=== PATIENT | male | born 1935 | race Caucasian/White ===

== ENCOUNTER 2022-08-08 13:45 | Inpatient (IN) | payer MEDICARE, BC ==
[~2022-08-08] VITALS: Ht 172.7 cm; Wt 83.9 kg
[2022-08-08] MEDS ORDERED: ASPIRIN 81 MG TAB.CHEW PO ONE (14:00)
[2022-08-08] MEDS ORDERED: ASPIRIN 81 MG TAB.CHEW ONE (14:24)
[2022-08-08 14:29] LABS: HEMATOCRIT 38.1 % (36.7-47.1); MEAN CORPUSCULAR HEMOGLOBIN 33.5 uug (23.8-33.4); MEAN CORPUSCULAR VOLUME 98.4 fL (73.0-96.2); PLATELET COUNT (AUTO) 164 K/uL (152-348)
[2022-08-08] MEDS ORDERED: ASPI81TA31 PO (14:33)
[2022-08-08] MEDS ORDERED: CLOP75TA15 PO (14:33)
[2022-08-08] MEDS ORDERED: PRED20TA PO (14:33)
[2022-08-08] MEDS ORDERED: FERR325T30 PO (14:33)
[2022-08-08] MEDS ORDERED: METO25TA6 PO (14:33)
[2022-08-08 14:53] LABS: CARBON DIOXIDE 27 mmol/L (21-32); CHLORIDE 108 mmol/L (98-107); GLUCOSE 105 mg/dL (74-106); POTASSIUM 3.9 mmol/L (3.5-5.1); UREA NITROGEN, BLOOD 17 mg/dL (7-18)
[2022-08-08 15:46] LABS: BILIRUBIN,DIRECT 0.1 mg/dL (0.0-0.2); BILIRUBIN,TOTAL 0.3 mg/dL (0.2-1.0); TOTAL PROTEIN, SERUM 6.5 g/dL (6.4-8.2)
[2022-08-08 16:33] VITALS: BP 98/60
[2022-08-08 17:06] LABS: *BILIRUBIN,URIN NEGATIVE (NEGATIVE); *BLOOD, URINE NEGATIVE (NEGATIVE); *CLARITY,URINE CLEAR (CLEAR); *COLOR,URINE YELLOW (YELLOW); *KETONES,URINE NEGATIVE (NEGATIVE); *UROBILINOGEN,URINE 0.2 E.U./dl (NORMAL); LEUKOCYTE ESTERASE ,URINE NEGATIVE (NEGATIVE); NITRITE, URINE NEGATIVE (NEGATIVE); PH,URINE 6.5 (5.0-8.0); UGLUCOSE NEGATIVE (NEGATIVE)
[2022-08-08] MEDS ORDERED: PANT40TA2 PO (17:07)
[2022-08-08] MEDS ORDERED: OLME20TA13 PO (17:15)
[2022-08-08] MEDS ORDERED: METO-357 PO (17:25)
[2022-08-08] MEDS ORDERED: TRELEGY INH (17:25)
[2022-08-08] MEDS ORDERED: HYDROCODONE/APAP 5-325MG TABLET PO PRN (18:15)
[2022-08-08] MEDS ORDERED: ACETAMINOPHEN 325 MG TABLET PO PRN (18:15)
[2022-08-08] MEDS ORDERED: TEMAZEPAM 15 MG CAPSULE PO PRN (18:15)
[2022-08-08] MEDS ORDERED: ONDANSETRON 4 MG/2 ML VIAL IV PRN (18:15)
[2022-08-08] MEDS ORDERED: TEMAZEPAM 7.5 MG CAPSULE PO PRN (18:30)
[2022-08-08 20:00] VITALS: BP 157/78
[2022-08-09] VITALS: BP 148/87
[2022-08-09 04:00] VITALS: BP 154/83
[2022-08-09 06:49] LABS: HEMATOCRIT 37.4 % (36.7-47.1); MEAN CORPUSCULAR HEMOGLOBIN 33.7 uug (23.8-33.4); MEAN CORPUSCULAR VOLUME 97.9 fL (73.0-96.2); PLATELET COUNT (AUTO) 159 K/uL (152-348)
[2022-08-09] MEDS ORDERED: PANTOPRAZOLE SODIUM 40 MG TABLET.DR PO SCH (07:00)
[2022-08-09 07:18] LABS: THYROID STIMULATING HORMONE 2.799 mIU/mL (0.358-3.740)
[2022-08-09] MEDS ORDERED: METOPROLOL SUCCINATE XL 25 MG TAB.SR.24H PO SCH (09:00)
[2022-08-09] MEDS ORDERED: METOPROLOL SUCCINATE XL 50 MG TAB.SR.24H PO SCH ×2 (09:00)
[2022-08-09] MEDS ORDERED: FERROUS SULFATE 325 MG TABEC PO SCH (09:00)
[2022-08-09] MEDS ORDERED: ASPIRIN EC 81 MG TABLET.DR PO SCH (09:00)
[2022-08-09] MEDS ORDERED: predniSONE 20 MG TABLET PO SCH (09:00)
[2022-08-09 10:02] LABS: ALANINE AMINOTRANSFERASE 22 U/L (16-63); ALKALINE PHOSPHATASE 59 U/L (50-136); ASPARTATE AMINOTRANSFERASE 19 U/L (15-37); BILIRUBIN,TOTAL 0.5 mg/dL (0.2-1.0); CARBON DIOXIDE 30 mmol/L (21-32); CHLORIDE 107 mmol/L (98-107); CHOLESTEROL 184 mg/dL (<200); GLUCOSE 81 mg/dL (74-106); HDL CHOLESTEROL 63 mg/dL (40-60); MAGNESIUM 1.7 mg/dL (1.8-2.4); PHOSPHOROUS 3.4 mg/dL (2.5-4.9); POTASSIUM 3.5 mmol/L (3.5-5.1); TRIGLYCERIDES 96 MG/DL (30-150); UREA NITROGEN, BLOOD 13 mg/dL (7-18)
[2022-08-09 12:00] VITALS: BP 143/76
[2022-08-09] MEDS ORDERED: METO-356 PO (13:39)
[2022-08-09] MEDS ORDERED: ASPI-618 PO (13:39)
[2022-08-09] MEDS ORDERED: MAGNESIUM OXIDE 400 MG TABLET PO ONE (15:00)
[2022-08-09] MEDS ORDERED: CLOPIDOGREL 75 MG TABLET PO SCH (18:00)
== END 2022-08-09 15:45 | disposition home or self-care (01) | DRG 206 ==
LOC: ER 13:45 → TELE3 16:11
PROVIDERS: ADMIT Internal Medicine; ATTEND Internal Medicine
DX: M94.0 Chondrocostal junction syndrome [Tietze] (principal); E44.1 Mild protein-calorie malnutrition; I16.0 Hypertensive urgency; M19.90 Unspecified osteoarthritis, unspecified site; E78.5 Hyperlipidemia, unspecified; E88.09 Other disorders of plasma-protein metabolism, not elsewhere classified; D75.89 Other specified diseases of blood and blood-forming organs; N40.0 Benign prostatic hyperplasia without lower urinary tract symptoms; Z86.73 Personal history of transient ischemic attack (TIA), and cerebral infarction without residual deficits; Z95.2 Presence of prosthetic heart valve; Z79.02 Long term (current) use of antithrombotics/antiplatelets; Z79.899 Other long term (current) drug therapy; Z79.82 Long term (current) use of aspirin; Z79.52 Long term (current) use of systemic steroids; Z20.822 Contact with and (suspected) exposure to COVID-19
CPT/HCPCS: 36415; 71045; 83735; 84100; 84443; 84484; 85025; 93005; 93307; A4663; G0378; J7512